=== PATIENT | female | born 1945 | race Caucasian/White ===

== ENCOUNTER → 2020-02-23 10:33 | Outpatient (CLI) | payer OTHER, SELFPAY ==
--- NOTE | 2020-02-23 | DI.US.S_ITS ---
PROCEDURE: US SOFT TISSUE HEAD AND NECK INDICATIONS: Enlarged lymph nodes, unspecified TECHNIQUE: Real-time scanning was performed of the neck region of interest, with image documentation. COMPARISON: None. FINDINGS: Multiple grayscale color images of the patient directed area of palpable concern adjacent to the left submandibular angle were acquired. There is a 1.7 x 1.2 x 1.3 cm indistinct isoechoic mass with adjacent vascularity. IMPRESSION: Non-specific 1.7 cm nonvascular isoechoic mass adjacent to the left submandibular region may represent a lymph node although no central fatty hilum is visualized versus other neoplastic process including benign and malignant etiologies. Consider further evaluation with contrast-enhanced CT of the neck versus biopsy. Dictated by: Malik Moncada M.D. on 02/23/2020 at 11:52 Approved by: Malik Moncada M.D. on 02/23/2020 at 12:26
== END ==
PROVIDERS: PCP Internal Medicine; Referring Provider Internal Medicine; Visit Provider Internal Medicine
DX: R22.1 Localized swelling, mass and lump, neck (principal)
CPT/HCPCS: 76536